=== PATIENT | female | born 1975 | race Caucasian/White ===

== ENCOUNTER 2017-06-21 20:02 | Emergency (ER) | payer OTHER ==
[~2017-06-21] VITALS: Ht 167.6 cm; Wt 76.0 kg
[2017-06-21 20:11] VITALS: BP 122/80; PULSE 101; RESP 16; TEMP 96.7; O2SAT 99
[2017-06-21] MEDS ORDERED: BACL10TA PO (21:28)
[2017-06-21] MEDS ORDERED: IBUP1TAB7 PO (21:28)
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
[2017-06-21] MEDS ORDERED: KETOROLAC TROMETHAMINE 60 MG/2 ML (IM) VIAL IM ONE (21:45)
[2017-06-21] MEDS ORDERED: ORPHENADRINE INJ 60 MG/2 ML AMP IM ONE (21:45)
== END 2017-06-21 21:55 | disposition home or self-care (01) ==
LOC: NEPD 20:02
DX: M79.601 Pain in right arm (principal); R51 Headache; V43.62XA Car passenger injured in collision with other type car in traffic accident, initial encounter
CPT/HCPCS: 99284; J1885; J2360

== ENCOUNTER 2017-06-22 15:05 | Emergency (ER) | payer OTHER ==
[~2017-06-22] VITALS: Ht 167.6 cm; Wt 76.5 kg
[~2017-06-22 15:05] MED LIST: BACL10TA PO; IBUP1TAB7 PO
[2017-06-22 15:06] VITALS: BP 128/74; PULSE 75; RESP 12; TEMP 98.2; O2SAT 99
[2017-06-22] MEDS ORDERED: traMADol HCL 50 MG TAB PO ONE (15:30)
[2017-06-22] MEDS ORDERED: IBUPROFEN 600 MG TAB PO ONE (15:30)
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
[2017-06-22] MEDS ORDERED: ONDANSETRON ODT 4 MG TAB PO ONE (15:45)
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
== END 2017-06-22 17:19 | disposition home or self-care (01) ==
LOC: NEPD 15:05
DX: G44.319 Acute post-traumatic headache, not intractable (principal); S16.1XXA Strain of muscle, fascia and tendon at neck level, initial encounter; H53.8 Other visual disturbances; V43.52XA Car driver injured in collision with other type car in traffic accident, initial encounter
CPT/HCPCS: 70450; 72125; 99285